=== PATIENT | female | born 1960 | race Two or more races ===

== ENCOUNTER 2023-11-08 15:14 | Emergency (ER) | payer OTHER ==
[~2023-11-08] VITALS: Ht 152.4 cm; Wt 51.7 kg
[2023-11-08] MEDS ORDERED: LEVOTHYROXINE25 MCG (15:48)
[2023-11-08] MEDS ORDERED: RINGERS SOLUTION,LACTATED 1,000 ML IV STA (18:02)
[2023-11-08] MEDS ORDERED: MEPERIDINE HCL/PF 25 MG/ML VIAL IM STA (18:02)
[2023-11-08] MEDS ORDERED: PROMETHAZINE HCL 25 MG/ML AMPUL IM STA (18:03)
[2023-11-08 18:28] LABS: HEMATOCRIT 40.6 % (36.0-45.00); HEMOGLOBIN 14.3 g/dL (12.0-15.00); MEAN CELL VOLUME 87.3 fL (80.00-100.00); MEAN CORPUSCULAR HEMOGLOBIN 30.7 pg (27.00-32.0); MEAN CORPUSCULAR HGB CONC 35.1 g/dl (32.0-36.0); PLATELET COUNT 206 K/uL (150-450); RED BLOOD COUNT 4.64 M/uL (4.00-6.00); RED CELL DISTRIBUTION WIDTH 12.7 % (11.5-14.5)
[2023-11-08 18:59] LABS: CALCIUM 9.2 mg/dL (8.5-10.1); CREATININE SERUM 0.61 mg/dL (0.55-1.02); GFR 98.43; POTASSIUM 4.5 mEq/L (3.5-5.1)
[2023-11-08 19:36] LABS: PH,URINE 5.5 (5.0-8.0); URINE APPEARANCE Clear; URINE BILIRRUBIN Negative (NEGATIVE); URINE BLOOD Negative; URINE COLOR Yellow; URINE GLUCOSE Negative (NEGATIVE); URINE LEUKOCYTE Negative; URINE NITRATE Negative; URINE PROTEIN Negative (NEGATIVE); URINE UROBILINOGEN 0.2 E.U./dl
[2023-11-08 19:39] LABS: URINE BACTERIA 6.2 uL (0.0-1933); URINE EPITHELIAL CELLS 3.6 uL (0.0-38.8); URINE WBC 8.9 uL (0.0-23.2)
[2023-11-08 19:42] LABS: URINE RBC 0.7 uL (0.0-20.8)
== END 2023-11-08 22:06 | disposition home or self-care (01) ==
LOC: ER 15:15
DX: N20.1 Calculus of ureter (principal); R10.9 Unspecified abdominal pain; Z91.013 Allergy to seafood
CPT/HCPCS: 36415; 74176; 96372; 99284; J2250